=== PATIENT | female | born 1980 | race Caucasian/White ===

== ENCOUNTER 2017-06-08 16:32 | Emergency (ER) | payer OTHER ==
[~2017-06-08] VITALS: Ht 154.9 cm; Wt 113.4 kg
[~2017-06-08 16:32] MED LIST: ACCUNEB SO1.25 MG/1 IH; ALEVE PM CAPLE1 EACH PO; ALEVE220 MG PO; ALL DAY ALLERGY10 M3 PO; AUGMENTIN 500-1 EACH PO; BACTRIM DS TAB1 EACH PO; BACTROBAN CREAM30 G1 TOP; BACTROBAN CREAM30 GM TOP; BACTROBAN NASAL1 GM NASAL; BACTROBAN15 GM TP; BENADRYL25 MG PO; CENTANY30 GM TP; CLEOCIN HCL150 MG PO; DOXYCYCLINE 10100 MG PO; LEVOTHROID; MELATONIN3 MG PO; MUPIROCIN22 GM TOP; PEPCID20 MG PO; PREDNISONE 20 M20 MG PO; PROAIR HFA8.5 GM IH; ZOFRAN ODT4 MG PO; ZPAK PO
[2017-06-08 17:24] LABS: INFLUENZA A ANTIGEN None Detected (None Detect); INFLUENZA B ANTIGEN None Detected (None Detect)
[2017-06-08 18:19] VITALS: BP 143/94
== END 2017-06-08 18:20 | disposition home or self-care (01) ==
LOC: M.ERS 16:32
PROVIDERS: Physician Assistant
DX: B34.9 Viral infection, unspecified (principal); E66.01 Morbid (severe) obesity due to excess calories; E03.9 Hypothyroidism, unspecified; F17.200 Nicotine dependence, unspecified, uncomplicated; Z88.1 Allergy status to other antibiotic agents; Z98.890 Other specified postprocedural states; Z88.6 Allergy status to analgesic agent; Z88.5 Allergy status to narcotic agent; Z88.8 Allergy status to other drugs, medicaments and biological substances; Z68.42 Body mass index [BMI] 45.0-49.9, adult

== ENCOUNTER 2017-08-29 19:48 | Inpatient (IN) | payer OTHER ==
[~2017-08-29] VITALS: Ht 154.9 cm; Wt 105.7 kg
[2017-08-29 19:56] VITALS: BP 138/78
[2017-08-29 20:09] LABS: ABSOLUTE EOSINOPHILS 0.2 thou/uL (0.0-0.7); ABSOLUTE LYMPHOCYTES 3.3 thou/uL (0.8-5.3); ABSOLUTE MONOCYTES 0.5 thou/uL (0.0-1.2); ABSOLUTE NEUTROPHILS 4.6 thou/uL (1.6-8.1); BASOPHILS 0.3 %; EOSINOPHILS 2.7 %; HEMATOCRIT 44.3 % (37.0-47.0); HEMOGLOBIN 14.5 gm/dL (12.0-15.0); LYMPHOCYTES 37.9 %; MCH 28.7 pg (26.0-34.0); MCHC 32.7 g/dL (28.0-37.0); MCV 87.6 fL (80.0-100.0); MONOCYTES 5.8 %; MPV 7.7 fl. (7.2-11.1); NUCLEATED RBCS 0 /100WBC; PLATELET COUNT* 406 thou/uL (150-400); POLYS 53.3 %; RBC 5.05 mil/uL (4.20-5.00); RDW-CV 13.8 % (10.5-14.5); WBC 8.7 thou/uL (4.0-11.0)
[2017-08-29 20:18] LABS: CALCIUM 8.8 mg/dL (8.5-10.1); CREATININE 0.8 mg/dL (0.6-1.3); POTASSIUM 3.6 mmol/L (3.5-5.1)
[2017-08-29 20:29] LABS: ALBUMIN 3.3 g/dL (3.4-5.0); MAGNESIUM 1.6 mg/dL (1.8-2.4); TOTAL BILIRUBIN 0.3 mg/dL (<0.1-1.0); TOTAL PROTEIN 6.7 g/dL (6.4-8.2)
[2017-08-29 23:42] VITALS: BP 100/79
[2017-08-30] VITALS (7 sets, daily range): BP systolic 102–145; BP diastolic 65–86
[2017-08-30] MEDS ORDERED: ROBAXIN 750 MG750 M1 PO (00:36)
--- NOTE | 2017-08-30 07:06 | NUR ---
PATIENT RESTED IN BED, NO ACUTE CHANGES. PATIENT NPO, PATIENT DID NOT SHOW SIGNS OF DISTRESS. PATIENT DID COMPLAIN OF CHEST PAIN THAT WAS COMPLETELY RELIEVED BY NITRO TABLET. FALL PRECAUTIONS IN PLACE, BED ALARM ON.
--- NOTE | 2017-08-30 14:37 | EKG ---
[place] [address] ELECTROCARDIOGRAM REPORT Name: NINOSKA BOLANOS Room: [address] ADM IN M.R.#: [id number] Admission: 08/29/17 Attend Phys: Mona Moser MD Discharge: Date of : 78 Report #: [id number] THIS REPORT FOR: //name// [facility] ED Test Date: 2017-08-29 Test Time: 19:57:17 Pat Name: NINOSKA BOLANOS Department: Room: [facility] Gender: F Rn Endoscopy: ALEXANDER : 1980 Requested By: Cristo Kcoh Order Number: [id number] : Roger Carlin Measurements Intervals [place] Rate: 81 P: 14 ND: 136 QRS: 58 QRSD: 83 T: 47 QT: 364 QTc: 423 Interpretive Statements Sinus rhythm Compared to ECG 08/31/2008 13:31:28 No significant changes Electronically Signed On 08-30-2017 14:36:49 CDT by Roger Carlin [email or web address] <ELECTRONICALLY SIGNED> By: Krista Carlin MD, [facility] 08/30/17 143 56 56 Krista Carlin MD, [facility] /EPI
--- NOTE | 2017-08-30 14:37 | EKG ---
[place] [address] ELECTROCARDIOGRAM REPORT Name: TANIA BOLANOSSUNDEEP GUAJARDOEEN Room: [address] ADM IN M.R.#: [id number] Admission: 08/29/17 Attend Phys: Mona Moser MD Discharge: Date of : 78 Report #: [id number] THIS REPORT FOR: //name// [facility] ED Test Date: 2017-08-29 Test Time: 22:44:09 Pat Name: NINOSKA BOLANOS Department: Room: [facility] Gender: F Support Teacher: LUPE : 1980 Requested By: Cristo Koch Order Number: [id number] MD: Roger Carlin Measurements Intervals [place] Rate: 69 P: 41 MS: 148 QRS: 0 QRSD: 85 T: -10 QT: 395 QTc: 423 Interpretive Statements Sinus rhythm Borderline T abnormalities, diffuse leads Baseline wander in lead(s) V2 Compared to ECG 08/31/2008 13:31:28 T-wave abnormality now present Electronically Signed On 08-30-2017 14:37:26 CDT by Roger Carlin [email or web address] <ELECTRONICALLY SIGNED> By: Krista Carlin MD, [facility] 08/30/17 1437 2244 2244 Krista Carlin MD, [facility] /EPI
--- NOTE | 2017-08-30 15:39 | NUR ---
ASSUMED PT CARE AT 0700 PT IS ALERT AND ORIENTED X 4 PT DENIES PAIN OR SOA ON 2L/NC, PT IS UP WITH SBA PT IS A FALL RISK BED ALARM IS ON, PT IS SR ON THE MONITOR, CARDIOLOGY CONSULT CANCELLED PER HOSPITALIST, PT WILL BE MONITORED AND MAY DISCHARGE TOMORROW, PT HAD DOSE OF MAGNESIUM, PT ABLE TO HAVE DIET THIS NURSE ORDERED PT DIET, WILL CONTINUE TO MONITOR
[2017-08-31] VITALS: BP 106/73
[2017-08-31 03:59] VITALS: BP 108/70
--- NOTE | 2017-08-31 04:36 | NUR ---
ASSUMED PT CARE AT 1930, PT IS &OX4, TRACING NSR ON THE MONITOR, ON 2L NC SATTING MID TO HIGH 90'S. PT SLEPT MOST OF THE SHIFT, DENIES ANY PAIN OR NEEDS AT THIS TIME. BED IS LOW POSITION, CALL LIGHT IN REACH, BED ALARM ON, YELLOW ARM BAND AND SOCKS IN PLACE. HOURLY ROUNDING COMPLETED FOR PT SAFETY.
[2017-08-31 08:00] VITALS: BP 143/90
[2017-08-31 11:30] VITALS: BP 148/91
[2017-08-31 12:48] VITALS: BP 148/91
--- NOTE | 2017-08-31 13:29 | EKG ---
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
[2017-08-31 15:25] VITALS: BP 148/91
--- NOTE | 2017-08-31 15:40 | NUR ---
I ASSUMED CARE OF THE PATIENT AT 0700. SHE IS ALERT AND ORIENTED X4 AND IS UP WITH STAND BY ASSIST. SHE IS ON 2LITERS OXYGEN AT THE BEGINNING OF MY SHIFT AND WAS TITRATED TO ROOM AIR AND MAINTAINING GREATER THAN 98% PRIOR TO D/C. BED IS IN THE LOW LOCKED POSITION AND CALL LIGHT IS IN REACH. HOURLY ROUNDING WAS COMPLETED AND PATIENT NEEDS WERE MET. PAIN IS DENIED. SHE IS ABLE TO USE THE RESTROOM INDEPENDENTLY. PATIENT IS DISCHARGED TO HOME WITH MOM AT 1525. IV WAS D/C'D AND HOMEOSTASIS ACHEIVED. SHE IS PROGRESSING TOWARD GOALS AND WAS ABLE TO TAKE A SHOWER INDEPENDENTLY.
== END 2017-08-31 15:28 | disposition home or self-care (01) | DRG 313 ==
LOC: M.ERS 19:48 → M.2W 23:03 → M.TBA-ER 23:03 → M.2W 08-30 00:13
PROVIDERS: Emergency Medicine Emergency Medical Services; ADMIT Internal Medicine
DX: R07.89 Other chest pain (principal); E83.42 Hypomagnesemia; E86.0 Dehydration; I10 Essential (primary) hypertension; F17.210 Nicotine dependence, cigarettes, uncomplicated; F12.90 Cannabis use, unspecified, uncomplicated; Z88.6 Allergy status to analgesic agent; Z88.1 Allergy status to other antibiotic agents; Z88.2 Allergy status to sulfonamides; Z88.8 Allergy status to other drugs, medicaments and biological substances

== ENCOUNTER 2017-09-21 04:06 | Emergency (ER) | payer OTHER ==
[~2017-09-21] VITALS: Ht 154.9 cm; Wt 90.7 kg
[~2017-09-21 04:06] MED LIST changes: +ROBAXIN 750 MG750 M1 PO
[2017-09-21 04:45] LABS: ABSOLUTE BASOPHILS 0.1 thou/uL (0.0-0.2); ABSOLUTE EOSINOPHILS 0.4 thou/uL (0.0-0.7); ABSOLUTE MONOCYTES 0.9 thou/uL (0.0-1.2); BASOPHILS 0.5 %; EOSINOPHILS 3.1 %; HEMATOCRIT 45.6 % (37.0-47.0); HEMOGLOBIN 14.6 gm/dL (12.0-15.0); LYMPHOCYTES 16.5 %; MCH 28.4 pg (26.0-34.0); MCHC 32.1 g/dL (28.0-37.0); MCV 88.5 fL (80.0-100.0); MONOCYTES 7.4 %; MPV 7.5 fl. (7.2-11.1); NUCLEATED RBCS 0 /100WBC; PLATELET COUNT* 352 thou/uL (150-400); POLYS 72.5 %; RBC 5.15 mil/uL (4.20-5.00); RDW-CV 13.7 % (10.5-14.5); WBC 12.4 thou/uL (4.0-11.0)
[2017-09-21 04:57] LABS: CALCIUM 8.8 mg/dL (8.5-10.1); CREATININE 0.8 mg/dL (0.6-1.3); POTASSIUM 3.5 mmol/L (3.5-5.1)
[2017-09-21 05:02] LABS: ALBUMIN 3.7 g/dL (3.4-5.0); TOTAL BILIRUBIN 0.3 mg/dL (<0.1-1.0); TOTAL PROTEIN 7.5 g/dL (6.4-8.2)
[2017-09-21] MEDS ORDERED: DOXYCYCLINE 10100 MG PO (06:33)
[2017-09-21 06:45] VITALS: BP 136/52
== END 2017-09-21 06:45 | disposition home or self-care (01) ==
LOC: M.ERS 04:06
PROVIDERS: Emergency Medicine Emergency Medical Services
DX: L03.211 Cellulitis of face (principal); Z88.1 Allergy status to other antibiotic agents; Z88.6 Allergy status to analgesic agent; Z88.8 Allergy status to other drugs, medicaments and biological substances

== ENCOUNTER 2018-03-05 08:56 | Emergency (ER) | payer OTHER ==
[~2018-03-05] VITALS: Ht 154.9 cm; Wt 90.7 kg
[2018-03-05] MEDS ORDERED: KEFLEX500 M1 PO (09:59)
[2018-03-05] MEDS ORDERED: BACTROBAN CREAM30 G1 TOP (09:59)
[2018-03-05 10:20] VITALS: BP 150/80
== END 2018-03-05 10:24 | disposition home or self-care (01) ==
LOC: M.ERS 08:56
DX: L01.00 Impetigo, unspecified (principal); Z88.1 Allergy status to other antibiotic agents; Z88.6 Allergy status to analgesic agent; Z88.5 Allergy status to narcotic agent; Z88.2 Allergy status to sulfonamides; Z88.8 Allergy status to other drugs, medicaments and biological substances; Z90.49 Acquired absence of other specified parts of digestive tract; Z90.89 Acquired absence of other organs

== ENCOUNTER 2018-04-20 19:54 | Emergency (ER) | payer OTHER ==
[~2018-04-20] VITALS: Ht 154.9 cm; Wt 90.7 kg
[~2018-04-20 19:54] MED LIST changes: +KEFLEX500 M1 PO
[2018-04-20] MEDS ORDERED: NOHOMEMEDICATIONS (20:11)
[2018-04-20 20:44] LABS: ABSOLUTE BASOPHILS 0.1 thou/uL (0.0-0.2); ABSOLUTE EOSINOPHILS 0.1 thou/uL (0.0-0.7); ABSOLUTE LYMPHOCYTES 2.4 thou/uL (0.8-5.3); ABSOLUTE MONOCYTES 0.9 thou/uL (0.0-1.2); ABSOLUTE NEUTROPHILS 2.5 thou/uL (1.6-8.1); BASOPHILS 1.4 %; EOSINOPHILS 1.1 %; HEMATOCRIT 43.4 % (37.0-47.0); HEMOGLOBIN 14.2 gm/dL (12.0-15.0); LYMPHOCYTES 40.8 %; MCH 28.7 pg (26.0-34.0); MCHC 32.7 g/dL (28.0-37.0); MCV 87.7 fL (80.0-100.0); MONOCYTES 14.5 %; MPV 7.7 fl. (7.2-11.1); NUCLEATED RBCS 0 /100WBC; PLATELET COUNT* 323 thou/uL (150-400); POLYS 42.2 %; RBC 4.95 mil/uL (4.20-5.00); RDW-CV 13.8 % (10.5-14.5); WBC 5.9 thou/uL (4.0-11.0)
[2018-04-20 20:55] LABS: ANION GAP 10 mmol/L (7-16); BUN 15 mg/dL (7-18); CALCIUM 8.3 mg/dL (8.5-10.1); CHLORIDE 102 mmol/L (98-107); CO2 27 mmol/L (21-32); CREATININE 0.8 mg/dL (0.6-1.3); GLUCOSE 85 mg/dL (70-99); POTASSIUM 3.3 mmol/L (3.5-5.1); SODIUM 139 mmol/L (136-145)
[2018-04-20 20:57] LABS: PROTIME 10.5 Seconds (9.20-11.50)
[2018-04-20 21:05] LABS: ALBUMIN 3.4 g/dL (3.4-5.0); LIPASE 133 U/L (73-393); NT-PRO BRAIN NAT PEPTIDE 20 pg/mL (<300); SGOT 36 U/L (15-37); SGPT 31 U/L (30-65); TOTAL BILIRUBIN 0.5 mg/dL (<0.1-1.0); TOTAL PROTEIN 7.4 g/dL (6.4-8.2); TROPONIN-I LEVEL <0.06 ng/mL (<0.06)
[2018-04-20 21:33] LABS: ALKALINE PHOSPHATASE 61 U/L (46-116)
[2018-04-20 22:18] LABS: URINE BILIRUBIN NEGATIVE (Negative); URINE BLOOD 3+ (Negative); URINE CLARITY CLEAR; URINE COLOR YELLOW; URINE GLUCOSE-RANDOM NEGATIVE (Negative); URINE KETONES NEGATIVE (Negative); URINE LEUKOCYTES-REFLEX NEGATIVE (Negative); URINE NITRITE-REFLEX NEGATIVE (Negative); URINE PROTEIN 1+ (Negative); URINE SPECIFIC GRAVITY >= 1.030 (1.005-1.030); URINE UROBILINOGEN 0.2 E.U./dl (0.2-1.0)
[2018-04-20 22:20] LABS: CRYSTALS None Seen /LPF (None Seen); HYALINE CASTS 0-3 Few /LPF (None Seen); MUCUS 0-3 Light strn/LPF (None Seen); SQUAMOUS 4-10 Moderate /LPF (0-3); URINE RBC None Seen /HPF (0-2); URINE WBC-REFLEX None Seen /HPF (0-5)
[2018-04-20 22:26] LABS: AMP/METHAMP POSITIVE (Negative); BARBITURATES Negative (Negative); BENZODIAZEPINES Negative (Negative); COCAINE POSITIVE (Negative); METHADONE Negative (Negative); OPIATES Negative (Negative); PCP Negative (Negative); THC Negative (Negative)
[2018-04-20 23:43] VITALS: BP 97/64
--- NOTE | 2018-04-21 16:23 | EKG ---
[place] [address] ELECTROCARDIOGRAM REPORT Name: TANIA BOLANOSGAN SEGUNDO [id number] Admission: 04/20/18 Attend Phys: Discharge: 04/20/18 Date of : 78 Report #: [id number] THIS REPORT FOR: //name// [facility] ED Test Date: 2018-04-20 Test Time: 20:05:20 Pat Name: NINOSKA BOLANOS Department: Room: Gender: F Ems Educator: ANGIE : 1980 Requested By: Melissa Mckeon Order Number: [id number] MD: Alin Tai Measurements Intervals [place] Rate: 87 P: 40 CT: 138 QRS: 1 QRSD: 80 T: 30 QT: 372 QTc: 448 Interpretive Statements Sinus rhythm Low voltage, precordial leads Compared to ECG 08/31/2017 07:48:47 Low QRS voltage now present Electronically Signed On 04-21-2018 16:23:23 GUEST EXPERIENCE REPRESENTATIVE by Alin Tai [email or web address] <ELECTRONICALLY SIGNED> By: Alin Tai MD, [facility] 04/21/18 1623 04 04 Alin Tai MD, [facility] /EPI
== END 2018-04-20 23:30 | disposition home or self-care (01) ==
LOC: M.ERS 19:54
PROVIDERS: Emergency Medicine
DX: F15.10 Other stimulant abuse, uncomplicated (principal); F14.10 Cocaine abuse, uncomplicated; R10.13 Epigastric pain; R10.11 Right upper quadrant pain; Z98.890 Other specified postprocedural states; Z88.1 Allergy status to other antibiotic agents; Z88.6 Allergy status to analgesic agent; Z88.2 Allergy status to sulfonamides; Z79.899 Other long term (current) drug therapy

== ENCOUNTER 2019-09-30 10:26 | Emergency (ER) | payer OTHER ==
[~2019-09-30] VITALS: Ht 154.9 cm; Wt 95.3 kg
[~2019-09-30 10:26] MED LIST changes: +NOHOMEMEDICATIONS
[2019-09-30] MEDS ORDERED: NORCO 5-325 TA1 EAC1 PO (11:16)
[2019-09-30 11:38] VITALS: BP 150/73
== END 2019-09-30 11:40 | disposition home or self-care (01) ==
LOC: M.ERS 10:26
DX: S90.32XA Contusion of left foot, initial encounter (principal); Z90.49 Acquired absence of other specified parts of digestive tract; Z88.1 Allergy status to other antibiotic agents; Z88.2 Allergy status to sulfonamides; Z88.6 Allergy status to analgesic agent; W22.8XXA Striking against or struck by other objects, initial encounter; Y93.89 Activity, other specified; Y92.89 Other specified places as the place of occurrence of the external cause; Y99.8 Other external cause status

== ENCOUNTER 2020-12-23 16:07 | Emergency (ER) | payer OTHER ==
[~2020-12-23] VITALS: Ht 154.9 cm; Wt 90.7 kg
[~2020-12-23 16:07] MED LIST changes: +NORCO 5-325 TA1 EAC1 PO
[2020-12-23] MEDS ORDERED: TYLENOL PM EX-1 EACH PO (16:29)
[2020-12-23 17:54] VITALS: BP 154/90
[2020-12-23] MEDS ORDERED: APAP W/CODEINE1 TA2 PO (18:09)
[2020-12-23] MEDS ORDERED: TESSALON PERLE100 MG PO (18:09)
[2020-12-23] MEDS ORDERED: PROMETHAZINE V120 ML PO (18:09)
== END 2020-12-23 17:55 | disposition home or self-care (01) ==
LOC: M.ERS 16:07
DX: U07.1 COVID-19 (principal); Z90.49 Acquired absence of other specified parts of digestive tract; Z88.1 Allergy status to other antibiotic agents; Z88.6 Allergy status to analgesic agent; Z88.2 Allergy status to sulfonamides; Z79.899 Other long term (current) drug therapy

== ENCOUNTER 2020-12-26 07:24 | Emergency (ER) | payer OTHER ==
[~2020-12-26] VITALS: Ht 154.9 cm; Wt 90.7 kg
[~2020-12-26 07:24] MED LIST changes: +APAP W/CODEINE1 TA2 PO; +PROMETHAZINE V120 ML PO; +TESSALON PERLE100 MG PO; +TYLENOL PM EX-1 EACH PO
[2020-12-26] MEDS ORDERED: FLEXERIL PO (08:38)
[2020-12-26] MEDS ORDERED: ZOFRAN ODT4 MG DISSOLVE (08:38)
[2020-12-26 09:08] VITALS: BP 132/90
== END 2020-12-26 09:09 | disposition home or self-care (01) ==
LOC: M.ERS 07:24
DX: U07.1 COVID-19 (principal); Z90.49 Acquired absence of other specified parts of digestive tract; Z88.1 Allergy status to other antibiotic agents; Z88.6 Allergy status to analgesic agent; Z88.5 Allergy status to narcotic agent; Z88.2 Allergy status to sulfonamides; Z79.899 Other long term (current) drug therapy

== ENCOUNTER 2020-12-28 10:01 | Inpatient (IN) | payer OTHER ==
[~2020-12-28] VITALS: Ht 154.9 cm; Wt 90.7 kg
[~2020-12-28 10:01] MED LIST changes: +FLEXERIL PO; +ZOFRAN ODT4 MG DISSOLVE
[2020-12-28 10:04] VITALS: BP 119/70
[2020-12-28] MEDS ORDERED: TESSALON PERLE100 M1 PO (10:12)
[2020-12-28 11:01] LABS: ABSOLUTE BASOPHILS 0.1 thou/uL (0.0-0.2); ABSOLUTE LYMPHOCYTES 1.2 thou/uL (0.8-5.3); ABSOLUTE MONOCYTES 0.3 thou/uL (0.0-1.2); ABSOLUTE NEUTROPHILS 3.2 thou/uL (1.6-8.1); BASOPHILS 1.2 %; HEMATOCRIT 43.4 % (37.0-47.0); HEMOGLOBIN 14.6 gm/dL (12.0-15.0); LYMPHOCYTES 25.6 %; MCH 31.6 pg (26.0-34.0); MCHC 33.5 g/dL (28.0-37.0); MCV 94.2 fL (80.0-100.0); MONOCYTES 6.7 %; MPV 7.5 fl. (7.2-11.1); NUCLEATED RBCS 0 /100WBC; PLATELET COUNT* 226 thou/uL (150-400); POLYS 66.5 %; RBC 4.61 mil/uL (4.20-5.00); RDW-CV 11.9 % (10.5-14.5); WBC 4.8 thou/uL (4.0-11.0)
[2020-12-28 11:08] LABS: CALCIUM 8.1 mg/dL (8.5-10.1); CREATININE 0.9 mg/dL (0.6-1.3); POTASSIUM 4.9 mmol/L (3.5-5.1)
[2020-12-28 11:13] LABS: ALBUMIN 3.2 g/dL (3.4-5.0); TOTAL BILIRUBIN 0.4 mg/dL (<0.1-1.0); TOTAL PROTEIN 7.5 g/dL (6.4-8.2)
--- NOTE | 2020-12-28 13:16 | EKG ---
[place] [address] ELECTROCARDIOGRAM REPORT Name: NINOSKA BOLANOS Room: [place] [address] ADM IN .R.#: [id number] Admission: 12/28/20 Attend Phys: Mona Moser, Discharge: Date of : 78 Date of Service: 12/28/20 1055 Report #: [id number] THIS REPORT FOR: //name// [facility] ED Test Date: 2020-12-28 Test Time: 10:55:47 Pat Name: NINOSKA BOLANOS Department: Room: [facility] Gender: F [employer] Officer: OMAR : 1980 Requested By: Cristo Koch Order Number: [id number] MD: Garrett Livingston Measurements Intervals [place] Rate: 100 P: 49 MS: 123 QRS: -14 QRSD: 74 T: 36 QT: 309 QTc: 399 Interpretive Statements Sinus tachycardia Probable left atrial enlargement Compared to ECG 04/20/2018 20:05:20 Sinus rhythm no longer present Electronically Signed On 12-28-2020 13:16:19 CDT by Garrett Livingston [email or web address] <ELECTRONICALLY SIGNED> By: Garrett Livingston MD, [facility] 12/28/20 1316 1055 1055 Garrett Livingston MD, [facility] /EPI
[2020-12-28 13:45] VITALS: BP 116/60
[2020-12-28 14:22] VITALS: BP 115/64
--- NOTE | 2020-12-28 14:58 | NUR ---
PT ARRIVED ON UNIT AT 1400 ESCORTED BY ER NURSE THAT GAVE REPORT. PT IS A/0X4 RESTLESS AND FIDGETY, SHE IS UP AD-GRISELDA ON 1L NC. PT SAYS SHE FEELS ACHY, BUT IS HAVING NO NAUSEA OR VOMITING. PATIENT GIVEN AND INCENTIVE SPIROMETER ND EDUCATED ON USE WHICH SHE WAS ABLE TO DEMONSTRATE. PT EDUCATED ON IMPORTANCE OF SITTING IN HER CHAIR DURING THE DAY TIME FOR MEALS AND PRONING AT NIGHT IN BED
[2020-12-28 20:00] VITALS: BP 109/63
[2020-12-28 22:16] LABS: AMP/METHAMP Negative (Negative); BARBITURATES Negative (Negative); BENZODIAZEPINES Negative (Negative); COCAINE Negative (Negative); METHADONE Negative (Negative); OPIATES Negative (Negative); PCP Negative (Negative); THC Negative (Negative)
[2020-12-29 00:46] VITALS: BP 118/82
[2020-12-29 04:32] VITALS: BP 91/55
--- NOTE | 2020-12-29 05:28 | NUR ---
ASSUMED PT CARE AT APPROX 1930. PT IS AWAKE AND ORIENTED X4. PT IS NOT IN DISTRESS,spO2 IS 88-89 ON 2L OF O2, INCREASED O2 SUPPORT TO 4L NC TO MAINTAIN spO2 >90%. PT IS TRACING SR ON THE HOP FARM WORKER. NO OTHER CHANGES THIS SHIFT. CALL LIGHT WITHIN REACH. HOURLY ROUNDING DONE FOR PT SAFETY.
[2020-12-29 09:09] VITALS: BP 120/70
[2020-12-29 12:15] VITALS: BP 127/76
[2020-12-29 13:20] LABS: ABSOLUTE LYMPHOCYTES 0.9 thou/uL (0.8-5.3); ABSOLUTE MONOCYTES 0.3 thou/uL (0.0-1.2); BASOPHILS 0.2 %; HEMATOCRIT 44.7 % (37.0-47.0); HEMOGLOBIN 14.5 gm/dL (12.0-15.0); LYMPHOCYTES 21.6 %; MCH 31.2 pg (26.0-34.0); MCHC 32.4 g/dL (28.0-37.0); MCV 96.3 fL (80.0-100.0); MONOCYTES 8.2 %; MPV 7.8 fl. (7.2-11.1); NUCLEATED RBCS 0 /100WBC; PLATELET COUNT* 249 thou/uL (150-400); RBC 4.64 mil/uL (4.20-5.00); RDW-CV 12.4 % (10.5-14.5); WBC 4.2 thou/uL (4.0-11.0)
[2020-12-29 13:32] LABS: ALBUMIN 3.1 g/dL (3.4-5.0); CALCIUM 8.5 mg/dL (8.5-10.1); CREATININE 0.8 mg/dL (0.6-1.3); POTASSIUM 4.3 mmol/L (3.5-5.1); TOTAL BILIRUBIN 0.3 mg/dL (<0.1-1.0); TOTAL PROTEIN 7.8 g/dL (6.4-8.2)
--- NOTE | 2020-12-29 15:54 | NUR ---
Covid positive. Anticipate dc in a few days. Pt down to 2L. Complete remdisivir prior to dc. Plan dc to home on Friday. Per med assist, Pt may qualify for ZANDRA expansion.
[2020-12-29 16:14] VITALS: BP 114/74
[2020-12-29 20:00] VITALS: BP 112/76
[2020-12-30 00:48] VITALS: BP 116/77
--- NOTE | 2020-12-30 04:32 | NUR ---
ASSUMED PT CARE AT APPROX 1930. PT IS AWAKE AND ORIENTED X4. PT IS NOT IN DISTRESS, NO DESATURATIONS NOTED ON 4L OF O2/NC. PT IS SHORT OF AIR WITH ACTIVITY. PT IS TRACING SR ON THE BRAILLE CODER. PT DENIES PAIN/DISCOMFORT. NO ACUTE CHANGES THIS SHIFT. CALL LIGHT WITHIN REACH. HOURLY ROUNDING DONE FOR PT SAFETY.
[2020-12-30 04:37] VITALS: BP 110/63
[2020-12-30 05:56] LABS: HEMATOCRIT 41.7 % (37.0-47.0); HEMOGLOBIN 13.9 gm/dL (12.0-15.0); MCH 31.7 pg (26.0-34.0); MCHC 33.2 g/dL (28.0-37.0); MCV 95.5 fL (80.0-100.0); MPV 8.1 fl. (7.2-11.1); RBC 4.37 mil/uL (4.20-5.00); RDW-CV 12.4 % (10.5-14.5); WBC 5.7 thou/uL (4.0-11.0)
[2020-12-30 06:26] LABS: ALBUMIN 2.9 g/dL (3.4-5.0); CALCIUM 8.3 mg/dL (8.5-10.1); CREATININE 0.7 mg/dL (0.6-1.3); MAGNESIUM 2.2 mg/dL (1.8-2.4); POTASSIUM 4.5 mmol/L (3.5-5.1); TOTAL BILIRUBIN 0.2 mg/dL (<0.1-1.0); TOTAL PROTEIN 7.1 g/dL (6.4-8.2)
[2020-12-30 07:35] VITALS: BP 118/73
[2020-12-30 12:49] VITALS: BP 124/80
[2020-12-30 16:25] VITALS: BP 137/91
--- NOTE | 2020-12-30 16:51 | NUR ---
PT REMAINED ALERT AND ORIENTED. PT WORKED WITH THERAPY TO INCREASE STRENGTH. FALL RISK PRECAUTIONS IN PLACE. HOURLY ROUNDING COMPLETED. HEART MONITORED. CALL LIGHT WITHIN REACH.
[2020-12-30 20:00] VITALS: BP 125/78
[2020-12-31 00:33] VITALS: BP 122/71
[2020-12-31 04:30] VITALS: BP 114/57
--- NOTE | 2020-12-31 05:38 | NUR ---
ASSUMED PT CARE AT APPROX 1930. PT IS AWAKE AND ORIENTED X4. PT IS NOT IN DISTRESS, NO DESATURATIONS NOTED ON 3L OF O2/NC. PT IS SHORT OF AIR WITH ACTIVITY. PT IS TRACING SR ON THE SAMPLE WEAVER. PT DENIES PAIN/DISCOMFORT. NO ACUTE CHANGES THIS SHIFT. CALL LIGHT WITHIN REACH. HOURLY ROUNDING DONE FOR PT SAFETY.
[2020-12-31 07:25] LABS: HEMATOCRIT 42.2 % (37.0-47.0); HEMOGLOBIN 13.7 gm/dL (12.0-15.0); MCH 31.1 pg (26.0-34.0); MCHC 32.4 g/dL (28.0-37.0); MCV 95.9 fL (80.0-100.0); MPV 8.2 fl. (7.2-11.1); RBC 4.39 mil/uL (4.20-5.00); RDW-CV 12.2 % (10.5-14.5); WBC 5.8 thou/uL (4.0-11.0)
[2020-12-31 07:32] LABS: CALCIUM 8.4 mg/dL (8.5-10.1); CREATININE 0.6 mg/dL (0.6-1.3); POTASSIUM 4.4 mmol/L (3.5-5.1)
[2020-12-31 08:00] VITALS: BP 139/85
[2020-12-31 14:22] VITALS: BP 142/67
[2020-12-31 16:06] VITALS: BP 142/67
--- NOTE | 2020-12-31 18:07 | NUR ---
PATIENT LEFT IN STABLE CONDITION WITH ALL BELONGINGS. OXYGEN TANK PROVIDED AT DISCHARGE. INSTRUCIONS PROVIDED FOR COVID ISOLATION UNTIL 01/06/21 AND ON OXYGEN USE.
== END 2020-12-31 16:30 | disposition home or self-care (01) | DRG 177 ==
LOC: M.ERS 10:01 → M.TBA-ER 11:29 → M.ORTHSURG 13:52
PROVIDERS: Emergency Medicine Emergency Medical Services; Family Medicine; ADMIT Internal Medicine; ATTEND Internal Medicine
PROC: XW033E5 Introduction of Remdesivir Anti-infective into Peripheral Vein, Percutaneous Approach, New Technology Group 5 (ICD-10-PCS; 2020-12-28)
PROC: 5A0935A Assistance with Respiratory Ventilation, Less than 24 Consecutive Hours, High Flow/Velocity Cannula (ICD-10-PCS; principal; 2020-12-30)
DX: U07.1 COVID-19 (principal); J12.82 Pneumonia due to coronavirus disease 2019; J96.01 Acute respiratory failure with hypoxia; F15.90 Other stimulant use, unspecified, uncomplicated; Z90.49 Acquired absence of other specified parts of digestive tract; Z79.899 Other long term (current) drug therapy; Z88.1 Allergy status to other antibiotic agents; Z88.8 Allergy status to other drugs, medicaments and biological substances; Z88.2 Allergy status to sulfonamides

== ENCOUNTER 2021-05-14 12:45 | Emergency (ER) | payer OTHER, MEDICAID ==
[~2021-05-14] VITALS: Ht 154.9 cm; Wt 104.3 kg
[~2021-05-14 12:45] MED LIST changes: +TESSALON PERLE100 M1 PO
[2021-05-14 12:56] VITALS: BP 143/62
[2021-05-14] MEDS ORDERED: TYLENOL PM EX-1 EACH PO (13:01)
== END 2021-05-14 16:16 | disposition left against medical advice (07) ==
LOC: M.ERS 12:45
DX: M54.50 Low back pain, unspecified (principal); Z53.21 Procedure and treatment not carried out due to patient leaving prior to being seen by health care provider